=== PATIENT | female | born 1985 | race Caucasian/White ===

== ENCOUNTER 2016-05-23 00:37 | Inpatient (IN) | payer SELFPAY ==
[~2016-05-23] VITALS: Ht 170.2 cm; Wt 78.0 kg
[~2016-05-23 00:37] MED LIST: PRENATAL PLUS I1 TAB PO
[2016-05-24] MEDS ORDERED: MOTRIN800 MG PO (10:25)
[2016-05-24] MEDS ORDERED: NORCO 325-5 MG1 TAB PO (10:25)
[2016-05-24] MEDS ORDERED: COLACE100 MG PO (10:26)
== END 2016-05-24 13:12 | disposition short-term general hospital (02) | DRG 775 ==
LOC: LDROP 00:37 → LDRIP 01:45
PROVIDERS: ADMIT Family Medicine
PROC: 10E0XZZ Delivery of Products of Conception, External Approach (ICD-10-PCS; principal; 2016-05-23)
PROC: 10907ZC Drainage of Amniotic Fluid, Therapeutic from Products of Conception, Via Natural or Artificial Opening (ICD-10-PCS; principal; 2016-05-23)
PROC: 30233N1 Transfusion of Nonautologous Red Blood Cells into Peripheral Vein, Percutaneous Approach (ICD-10-PCS; principal; 2016-05-23)
PROC: 0UBGXZZ Excision of Vagina, External Approach (ICD-10-PCS; principal; 2016-05-23)
DX: O80 Encounter for full-term uncomplicated delivery (principal); Z37.0 Single live birth; Z3A.40 40 weeks gestation of pregnancy; N89.8 Other specified noninflammatory disorders of vagina; Z23 Encounter for immunization; Z72.0 Tobacco use
CPT/HCPCS: A9150; G0008; G0477; J2590; J2765; J2790; J3010; J3490